=== PATIENT | male | born 1980 | race Hispanic/Latino ===

== ENCOUNTER 2020-06-24 13:00 | Emergency (ER) | payer OTHER, SELFPAY ==
[2020-06-24] MEDS ORDERED: Lidocaine 1% 20 ML MDV ONE (13:22)
[2020-06-24] MEDS ORDERED: Bacitracin 1 PK ONE (13:58)
== END 2020-06-24 14:11 | disposition home or self-care (01) ==
LOC: MADERS 13:00
DX: S61.211A Laceration without foreign body of left index finger without damage to nail, initial encounter (principal); J45.909 Unspecified asthma, uncomplicated; Z87.891 Personal history of nicotine dependence; W26.0XXA Contact with knife, initial encounter
CPT/HCPCS: 12001